=== PATIENT | male | born 1965 | race African-American/Black ===

== ENCOUNTER 2017-06-07 16:57 | Inpatient (IN) | payer MEDICAID ==
[~2017-06-07] VITALS: Ht 180.3 cm; Wt 83.5 kg
[2017-06-07] MEDS ORDERED: NKM (17:17)
[2017-06-07] MEDS ORDERED: DiphenhydrAMINE 50mg/ml Inj IM ONE (17:30)
[2017-06-07] MEDS ORDERED: Solu-MEDROL 125mg Inj IM ONE (17:30)
--- NOTE | 2017-06-07 17:30 | Emergency Room Report ---
History of Present Illness General Chief Complaint: Allergic Reaction Source: Patient Present Illness HPI 51-year-old male presents to the emergency department complaining of swelling to the jaw line and lower lip times approximately 40 minutes. Patient states that he has hair dye applied to his. After about 15 minutes he began having significant itching and the head that was removed. Patient reports itchy feeling in the back of his throat but denies swelling of the tongue or difficulty breathing at this time. denies swelling of the throat. Patient denies history of allergies he denies taking ANY inhibitor's he took some liquid Benadryl by mouth just prior to arrival. Denies wheezing. Denies lesions /rashes elsewhere on the body. Denies new medications or body washes or creams. Denies recent travel, recent illness or ill contacts. denies blisters, oral lesions, or sloughing of the skin. Allergies: Coded Allergies: PENICILLINS (Verified Allergy, Unknown, 06/07/17) Patient History Past Medical History: see triage record Past Surgical History: none Pertinent Family History: none Reviewed Nursing Documentation: PMH: Agreed, PSxH: Agreed Nursing Documentation-PMH Past Medical History: No Stated History Review of Systems All Other Systems: negative except mentioned in HPI Physical Exam Vital Signs Date Time Temp Pulse Resp B/P (MAP) Pulse Ox O2 Delivery O2 Flow Rate FiO2 06/07/17 16:58 97.6 62 16 146/100 99 Room Air 97.5 Sp02 EP Interpretation: reviewed, normal General Appearance: alert, GCS 15, non-toxic, mild distress - facial swelling noted, not in respiratory distress. Head: normocephalic, atraumatic Eyes: bilateral eye normal inspection, bilateral eye PERRL ENT: hearing grossly normal, normal voice, other - swelling of the lower jaw line, and lips, normal size tongue, no swelling of the pharynx visualized, no stridor. Neck: full range of motion Respiratory: chest non-tender, lungs clear, normal breath sounds, no rhonchi, no respiratory distress, no wheezing, speaking full sentences Cardiovascular #1: regular rate, rhythm, normal capillary refill Musculoskeletal: back normal, gait/station normal, normal range of motion, non- tender Neurologic: alert, oriented x3, responsive, motor strength/tone normal, sensory intact, speech normal, grossly normal Psychiatric: judgement/insight normal Skin: normal color, warm/dry, well hydrated, other - chin, lower jaw line and lip swelling, mild erythema noted. Medical Decision Making PA Attestation Dr. rosales is my supervising Physician whom patient management has been discussed with. Diagnostic Impression: Primary Impression: Allergic reaction Qualified Codes: T78.40XA - Allergy, unspecified, initial encounter ER Course 51-year-old male presents to the emergency department complaining of swelling to the jaw line and lower lip times approximately 40 minutes. Patient states that he has hair dye applied to his. After about 15 minutes he began having significant itching and the head that was removed. Patient reports itchy feeling in the back of his throat but denies swelling of the tongue or difficulty breathing at this time. denies swelling of the throat. Patient denies history of allergies he denies taking ANY inhibitor's he took some liquid Benadryl by mouth just prior to arrival. Denies wheezing. Denies lesions /rashes elsewhere on the body. Denies new medications or body washes or creams. Denies recent travel, recent illness or ill contacts. denies blisters, oral lesions, or sloughing of the skin. Ddx considered but are not limited to cellulitis, allergic reaction, angio edema , abscess, anaphylaxis Vital signs: are WNL, pt. is afebrile, no evidence of tachycardia, low oxygen saturation, or hypotension. H&PE are most consistent with allergic reaction to chemical contact/ hair dye. - - Swelling of the lower lip, and lower jaw line, no stridor, no swelling of the tongue or soft tissues of the pharynx. ORDERS: -CBC + CMP : unremarkable other than acute elevation in wbc's most likely stress induced due to acute reaction. ED INTERVENTIONS: IM Solu-Medrol- 60mg ( x2) IM Benadryl- 50mg , IM Epinephrine 0.3mg , Pepcid IV. -d/w pt. importance of following up with PCP and considering allergy testing. Pt. will be d/c with epi-pen and instructed on its use. pt. to avoid hair dye/ chemical exposure . DISPOSITION: at this time pt. will be admitted to for Moderate Allergic reaction. Dr. Humphreys agreed to admit the pt. and to continue pt. care management. Labs Test 06/07/17 19:30 White Blood Count 14.6 K/UL (4.8-10.8) Red Blood Count 5.09 M/UL (4.70-6.10) Hemoglobin 15.3 G/DL (14.2-18.0) Hematocrit 46.2 % (42.0-52.0) Mean Corpuscular Volume 91 FL (80-99) Mean Corpuscular Hemoglobin 30.1 PG (27.0-31.0) Mean Corpuscular Hemoglobin Concent 33.2 G/DL (32.0-36.0) Red Cell Distribution Width 12.5 % (11.6-14.8) Platelet Count 252 K/UL (150-450) Mean Platelet Volume 7.2 FL (6.5-10.1) Neutrophils (%) (Auto) 86.9 % (45.0-75.0) Lymphocytes (%) (Auto) 7.6 % (20.0-45.0) Monocytes (%) (Auto) 4.8 % (1.0-10.0) Eosinophils (%) (Auto) 0.5 % (0.0-3.0) Basophils (%) (Auto) 0.2 % (0.0-2.0) Sodium Level 136 MMOL/L (136-145) Potassium Level 4.0 MMOL/L (3.5-5.1) Chloride Level 103 MMOL/L (98-107) Carbon Dioxide Level 25 MMOL/L (21-32) Anion Gap 9 mmol/L (5-15) Blood Urea Nitrogen 11 mg/dL (7-18) Creatinine 0.9 MG/DL (0.55-1.30) Estimat Glomerular Filtration Rate > 60 mL/min (>60) Glucose Level 96 MG/DL (74-106) Calcium Level 9.2 MG/DL (8.5-10.1) Total Bilirubin 0.8 MG/DL (0.2-1.0) Aspartate Amino Transf (AST/SGOT) 28 U/L (15-37) Alanine Aminotransferase (ALT/SGPT) 19 U/L (12-78) Alkaline Phosphatase 52 U/L (46-116) Total Protein 7.6 G/DL (6.4-8.2) Albumin 3.9 G/DL (3.4-5.0) Globulin 3.7 g/dL Albumin/Globulin Ratio 1.1 (1.0-2.7) Last Vital Signs Date Time Temp Pulse Resp B/P (MAP) Pulse Ox O2 Delivery O2 Flow Rate FiO2 06/07/17 16:58 97.6 62 16 146/100 99 Room Air 97.5 Disposition: ADMITTED INPATIENT Condition: Trinity De León Jun 07, 2017 17:30
[2017-06-07 17:33] VITALS: BP 155/90
[2017-06-07 19:01] VITALS: BP 151/96
[2017-06-07] MEDS ORDERED: EPINEPHrine 1mg/1ml Amp IM ONE (19:30)
[2017-06-07] MEDS ORDERED: Solu-MEDROL 125mg Inj IVP ONE (19:30)
[2017-06-07] MEDS ORDERED: Hurricaine 20% Spray ORO ONE (19:30)
[2017-06-07 19:45] LABS: HEMATOCRIT 46.2 % (42.0-52.0); HEMOGLOBIN 15.3 G/DL (14.2-18.0); MEAN CORPUSCULAR VOLUME 91 FL (80-99); PLATELET COUNT 252 K/UL (150-450); RED BLOOD COUNT 5.09 M/UL (4.70-6.10); RED CELL DISTRIBUTION WIDTH 12.5 % (11.6-14.8); WHITE BLOOD COUNT 14.6 K/UL (4.8-10.8)
[2017-06-07 19:55] LABS: BASOPHILS % (AUTO) 0.2 % (0.0-2.0); EOSINOPHILS % (AUTO) 0.5 % (0.0-3.0); LYMPHOCYTES % (AUTO) 7.6 % (20.0-45.0); MONOCYTES % (AUTO) 4.8 % (1.0-10.0); NEUTROPHILS % (AUTO) 86.9 % (45.0-75.0)
[2017-06-07 20:01] LABS: ANION GAP 9 mmol/L (5-15); BLOOD UREA NITROGEN 11 mg/dL (7-18); CALCIUM 9.2 MG/DL (8.5-10.1); CARBON DIOXIDE 25 MMOL/L (21-32); CHLORIDE 103 MMOL/L (98-107); CREATININE 0.9 MG/DL (0.55-1.30); SODIUM 136 MMOL/L (136-145)
[2017-06-07 20:05] LABS: ALANINE AMINOTRANSFERASE 19 U/L (12-78); ALBUMIN 3.9 G/DL (3.4-5.0); ALBUMIN/GLOBULIN RATIO 1.1 (1.0-2.7); ALKALINE PHOSPHATASE 52 U/L (46-116); ASPARTATE AMINO TRANSFERASE 28 U/L (15-37); BILIRUBIN,TOTAL 0.8 MG/DL (0.2-1.0)
[2017-06-07 21:20] VITALS: BP 147/90
[2017-06-07] MEDS ORDERED: LORazepam Inj 2mg/ml 1ml IV PRN (21:45)
[2017-06-07] MEDS ORDERED: Promethazine/Codeine 5ml UD ORAL PRN (21:45)
[2017-06-07] MEDS ORDERED: Nitroglycerin Subl 0.4mg tab SL PRN (21:45)
[2017-06-07] MEDS ORDERED: Albuterol/Ipratropium 3ml neb HHN PRN (21:45)
[2017-06-08] VITALS: BP 121/75
[2017-06-08] MEDS: Solu-MEDROL 125mg Inj IV SCH ×3 (00:23→11:30)
[2017-06-08 04:00] VITALS: BP_SYST 103; BP_SYST 138; BP_DIAS 53; BP_DIAS 75
[2017-06-08] MEDS ORDERED: DiphenhydrAMINE 50mg/ml Inj IVP PRN (10:30)
[2017-06-08 11:30] VITALS: BP 163/95
--- NOTE | 2017-06-08 12:10 | History and Physical ---
History of Present Illness General Date patient seen: Jun 08, 2017 Reason for Hospitalization: Allergic Reaction Present Illness Allergies: Coded Allergies: PENICILLINS (Verified Allergy, Unknown, 06/07/17) Uncoded Allergies: Hair dye (Allergy, Severe, Anaphylaxis, 06/08/17) Medication History Scheduled No Known Medications* (NKM - No Known Medications*), 0 ., (Reported) Patient History Healthcare decision maker Resuscitation status Full Code Advanced Directive on File Review of Systems Constitutional: Reports: malaise Physical Exam General Appearance: WD/WN, no apparent distress Lines, tubes and drains: peripheral HEENT: normocephalic, atraumatic Neck: non-tender, normal alignment Respiratory/Chest: chest wall non-tender, lungs clear Cardiovascular/Chest: normal peripheral pulses, regular rhythm Abdomen: normal bowel sounds Genitourinary/Rectal: normal genital exam, normal prostate exam Extremities: normal range of motion Last 24 Hour Vital Signs Date Time Temp Pulse Resp B/P (MAP) Pulse Ox O2 Delivery O2 Flow Rate FiO2 06/08/17 08:10 78 16 Room Air 21 06/08/17 04:00 68 06/08/17 04:00 98.8 61 21 103/53 92 Room Air 06/08/17 04:00 98.8 60 20 138/75 97 Room Air 06/08/17 00:00 98.5 65 20 121/75 98 Room Air 06/08/17 00:00 87 06/07/17 22:51 98.2 84 18 147/90 100 Room Air 06/07/17 21:20 98.2 84 18 147/90 100 Room Air 98.2 06/07/17 19:01 65 24 151/96 100 Room Air 06/07/17 17:33 53 13 155/90 97 Room Air 06/07/17 16:58 97.6 62 16 146/100 99 Room Air 97.5 Intake and Output 06/07/17 06/08/17 19:00 07:00 Intake Total 0 ml 480 ml Balance 0 ml 480 ml Intake Oral 0 ml 480 ml # Voids 1 Laboratory Tests Test 06/07/17 19:30 White Blood Count 14.6 K/UL (4.8-10.8) H Red Blood Count 5.09 M/UL (4.70-6.10) Hemoglobin 15.3 G/DL (14.2-18.0) Hematocrit 46.2 % (42.0-52.0) Mean Corpuscular Volume 91 FL (80-99) Mean Corpuscular Hemoglobin 30.1 PG (27.0-31.0) Mean Corpuscular Hemoglobin Concent 33.2 G/DL (32.0-36.0) Red Cell Distribution Width 12.5 % (11.6-14.8) Platelet Count 252 K/UL (150-450) Mean Platelet Volume 7.2 FL (6.5-10.1) Neutrophils (%) (Auto) 86.9 % (45.0-75.0) H Lymphocytes (%) (Auto) 7.6 % (20.0-45.0) L Monocytes (%) (Auto) 4.8 % (1.0-10.0) Eosinophils (%) (Auto) 0.5 % (0.0-3.0) Basophils (%) (Auto) 0.2 % (0.0-2.0) Sodium Level 136 MMOL/L (136-145) Potassium Level 4.0 MMOL/L (3.5-5.1) Chloride Level 103 MMOL/L (98-107) Carbon Dioxide Level 25 MMOL/L (21-32) Anion Gap 9 mmol/L (5-15) Blood Urea Nitrogen 11 mg/dL (7-18) Creatinine 0.9 MG/DL (0.55-1.30) Estimat Glomerular Filtration Rate > 60 mL/min (>60) Glucose Level 96 MG/DL (74-106) Calcium Level 9.2 MG/DL (8.5-10.1) Total Bilirubin 0.8 MG/DL (0.2-1.0) Aspartate Amino Transf (AST/SGOT) 28 U/L (15-37) Alanine Aminotransferase (ALT/SGPT) 19 U/L (12-78) Alkaline Phosphatase 52 U/L (46-116) Total Protein 7.6 G/DL (6.4-8.2) Albumin 3.9 G/DL (3.4-5.0) Globulin 3.7 g/dL Albumin/Globulin Ratio 1.1 (1.0-2.7) Height (Feet): 5 Height (Inches): 11.00 Weight (Pounds): 184 Medications Current Medications Medications (Trade) Dose Ordered Sig/Lucia Route PRN Reason Start Time Stop Time Status Last Admin Dose Admin Albuterol/ Ipratropium (Albuterol/ Ipratropium) 3 ml Q4H PRN HHN dyspnea 06/07/17 21:45 06/12/17 21:44 Dextrose (Dextrose 50%) STAT PRN IV Hypoglycemia 06/07/17 21:45 07/07/17 21:44 Diphenhydramine HCl (Benadryl) 25 mg Q6H PRN IVP Itching 06/08/17 10:30 07/08/17 10:29 06/08/17 10:37 Heparin Sodium (Porcine) (Heparin 5000 units/ml) 5,000 units EVERY 12 HOURS SUBQ 06/08/17 23:00 07/08/17 22:59 Lorazepam (Ativan 2mg/ml 1ml) 0.5 mg Q4H PRN IV For Anxiety 06/07/17 21:45 06/14/17 21:44 Methylprednisolone Sodium Succinate (Solu-MEDROL) 60 mg EVERY 6 HOURS IV 06/08/17 00:00 07/08/17 00:00 06/08/17 11:30 Nitroglycerin (Ntg) 0.4 mg Q5M X 3 DOSES PRN SL Prn Chest Pain 06/07/17 21:45 07/07/17 21:44 Ondansetron HCl (Zofran) 4 mg Q6H PRN IVP Nausea & Vomiting 06/07/17 21:45 07/07/17 21:44 Promethazine HCl/ Codeine (Phenergan with Codeine) 5 ml Q6H PRN ORAL cough 06/07/17 21:45 07/07/17 21:44 Temazepam (Restoril) 15 mg HSPRN PRN ORAL Insomnia 06/07/17 21:45 06/14/17 21:44 Assessment/Plan Problem List: (1) Allergic dermatitis ICD Codes: L23.9 - Allergic contact dermatitis, unspecified cause SNOMED: 522868101 (2) Angioectopia ICD Codes: Q27.8 - Other specified congenital malformations of peripheral vascular system SNOMED: 811292306 (3) Allergic reaction ICD Codes: T78.40XA - Allergy, unspecified, initial encounter SNOMED: 754809414 Qualifiers: Qualified Codes: T78.40XA - Allergy, unspecified, initial encounter Status Narrative Benadry steroids dc with outpatient f/u NAKUL SIEGEL Jun 08, 2017 12:10
[2017-06-08] MEDS ORDERED: PREDNISONE10 M2 PO (12:11)
[2017-06-08] MEDS ORDERED: BENADRYL25 M3 PO (12:14)
--- NOTE | 2017-06-08 16:20 | Cardiology Report ---
APPROVED REPORT EKG Measurement Heart [id number] Normal sinus rhythm Normal ECG
[2017-06-08] MEDS ORDERED: Heparin 5000 units/ml inj SUBQ SCH (23:00)
--- NOTE | 2017-06-09 14:57 | Discharge Summary ---
Discharge Summary Hospital Course Date of Admission Jun 07, 2017 at 20:40 Date of Discharge Jun 08, 2017 at 12:30 Admitting Diagnosis allergic reaction NATO Bryant is a 51 year old male who was admitted on Jun 07, 2017 at 20:40 for Allergic Reaction Hospital Course [id number] Discharge Discharge Disposition Patient was discharged to Home (01) Discharge Diagnoses: Lashanda Slater NP Jun 09, 2017 14:57
--- NOTE | 2017-06-09 22:46 | Discharge Summary 2 SIG ---
DATE OF ADMISSION: 06/07/2017 DATE OF DISCHARGE: 06/08/2017 BRIEF HOSPITAL COURSE: The patient is a 51-year-old male, who presented to ED complaining of swelling to the jaw line and lower lip approximately 40 minutes prior to admission. The patient had a hair dye applied and 15 minutes after began having significant itching, had itchy feeling in the back of his throat, however, denied difficulty breathing. On evaluation at ED, blood work showed leukocytosis, WBC was 14. He was given Solu-Medrol IM and Benadryl, epinephrine, and Pepcid. He was then admitted for allergic reaction. He was continued on Benadryl and steroids. Following day, there was rapid, unexpected improvement in symptoms and the patient was discharged home. Advised need for outpatient followup and allergy testing. FINAL DIAGNOSES: 1. Allergic contact dermatitis. 2. Angioectopia. 3. Allergic reaction. DISPOSITION: The patient was discharged home. DISCHARGE MEDICATIONS: Continue with Benadryl and prednisone. DISCHARGE INSTRUCTIONS: Follow up with PCP in a week. Fran Chopra M.D. I have been assigned to dictate discharge summary on this account and I was not involved in the patient's management. Lashanda Slater N.P. DR: AGNES JOB#: [id number] CC: AAKASH
== END 2017-06-08 12:30 | disposition home or self-care (01) | DRG 385 ==
LOC: EMR 17:30 → 2E 20:40 → EDBEDREQ 20:46 → 2E 21:12
DX: L23.4 Allergic contact dermatitis due to dyes (principal); Z88.0 Allergy status to penicillin; T65.6X1A Toxic effect of paints and dyes, not elsewhere classified, accidental (unintentional), initial encounter; L24.89 Irritant contact dermatitis due to other agents; Y92.89 Other specified places as the place of occurrence of the external cause
CPT/HCPCS: 36415; 80053; 85025; 93005; 94664; 99285